=== PATIENT | male | born 1960 | race Caucasian/White ===

== ENCOUNTER 2016-04-27 08:26 | Emergency (ER) | payer BC ==
[2016-04-27 08:39] VITALS: BP 140/84
--- NOTE | 2016-04-27 09:17 | UC ---
General HPI - HPI Summary HPI Summary: The patient comes in today for: 1. Poor taste and coating on the tongue: Onset: Coating on the tongue noticed last night. Poor taste since yesterday. Palliative/provocative: Nothing makes the symptoms better or worse. Quality: No pain of the tongue. But, the tongue feels coated. Region: Tongue Severity: 0/10 Time: Constant. Associated symptoms: Nasal congestion: None. Rhinitis: None. Smell: "I smell pretty good." Cough: None. He went on the internet and thought he had thrush. Indigestion: He has had this for about 10 days when he started his Cipro and Flagy. He states that he has no radiation of the pain. Diaphoresis--none. He had nausea when he was on the medication. No vomiting. His risk factors include his age, DM, HTN, no previous heart disease. He has no radiation of the discomfort. He states that he has had a stress test about 5 years ago which was normal. And he states that he walks every day and states that he has no chest discomfort or indigestion. He states that in about 6 hours he is supposed to be getting on a plane to travel out of the area. He states that he agrees to an EKG while here at this time. * - History of Current Complaint Chief Complaint: UCGeneralIllness Stated Complaint: ORAL COMPLAINT Time Seen by Provider: 04/27/16 09:06 Hx Obtained From: Patient - Allergy/Home Medications Allergies/Adverse Reactions: Allergies Allergy/AdvReac Type Severity Reaction Status Date / Time Sulfa Drugs Allergy Intermediate Hives Verified 04/27/16 08:29 Home Medications: Home Medications Lisinopril TAB* [Prinivil TAB*] 10 mg PO DAILY 04/27/16 [History Confirmed 04/27] Misc Natural Products [Osteo Bi-Flex Joint Shiel] 1 tab PO DAILY 04/27/16 [ History Confirmed 04/27/16] PMH/Surg Hx/FS Hx/Imm Hx Previously Healthy: No - Irritable bowel. Endocrine History Of: Reports: Diabetes - rittype II, Dyslipidemia Denies: Thyroid Disease, Hyperthyroidism, Hypothyroidism Cardiovascular History Of: Reports: Hypertension - He states that he is on lisinopril. Denies: Cardiac Disorders, Pacemaker/ICD, Myocardial Infarction, Congestive Heart Failure, Atrial Fibrillation, Deep Vein Thrombosis, Bleeding Disorders Respiratory History Of: Denies: COPD, Asthma, Bronchitis, Pneumonia, Pulmonary Embolism GI/ History Of: Reports: Gastroesophageal Reflux Denies: Ulcer, Gastrointestinal Bleed, Gall Bladder Disease, Kidney Stones, Diverticulitis, Renal Disease, Urosepsis Neurological History Of: Denies: TIA, CVA, Dementia, Seizures, Migraine Psychological History Of: Denies: Anxiety, Depression, Bipolar Disorder, Schizophrenia, Post Traumatic Stress Disorder Cancer History Of: Denies: Lung Cancer, Colorectal Cancer, Breast Cancer, Prostate Cancer, Cervical Cancer Other History Of: Negative For: HIV, Hepatitis B, Hepatitis C, Anticoagulant Therapy - Surgical History Surgical History: Yes Surgery Procedure, Year, and Place: BILATERAL CARPAL TUNNEL SURGERY. R shoulder surgery - Family History Known Family History: Positive: Cardiac Disease, Hypertension - Social History Occupation: Unemployed Alcohol Use: Weekly Alcohol Amount: 1 glass wine Substance Use Type: None Smoking Status (MU): Former Smoker Type: Cigarettes Amount Used/How Often: quit 30 yo - Immunization History Most Recent Influenza Vaccination: 2016 Review of Systems Constitutional: Negative Skin: Negative Eyes: Negative ENT: Negative Respiratory: Negative Cardiovascular: Negative Gastrointestinal: Abdominal Pain - Indigestion which started when he started Rx for diverticulitis. Genitourinary: Negative All Other Systems Reviewed And Are Negative: Yes Physical Exam Triage Information Reviewed: Yes Appearance: Well-Appearing, No Pain Distress, Well-Nourished Vital Signs: Initial Vital Signs Temp 98.9 F 04/27/16 08:33 Pulse 93 04/27/16 08:33 Resp 16 04/27/16 08:33 BP 140/84 04/27/16 08:33 Pulse Ox 98 04/27/16 08:33 Vital Signs Reviewed: Yes Eyes: Positive: Conjunctiva Clear. Negative: Discharge ENT: Positive: Hearing grossly normal, Other: - He has no thrush, but has a white coated tongue.. Negative: Pharyngeal erythema, Nasal congestion, Nasal drainage, TM bulging, TM dull, TM red, Tonsillar swelling, Tonsillar exudate Dental: Negative: Gross Decay/Caries @, Dental Fracture @ Neck: Positive: Supple, Nontender, No Lymphadenopathy. Negative: Nuchal Rigidity Respiratory: Positive: Chest non-tender, No respiratory distress, No accessory muscle use. Negative: Crackles, Wheezing Cardiovascular: Positive: RRR, No Murmur Abdomen Description: Positive: Nontender, No Organomegaly. Negative: Distended , Guarding Musculoskeletal: Positive: Strength Intact, ROM Intact, No Edema Neurological: Positive: Alert, Muscle Tone Normal Psychological: Positive: Age Appropriate Behavior, Consolable Skin: Negative: rashes, breakdown Diagnostics - Laboratory Diagnostic Studies Completed/Ordered: EKG: Rate: 86. Rhythm: sinus. Ectopy: None. Acute changes: None. Course/Dx - Course Course Of Treatment: The geoffreyt was told that his "indigestion" could be a sign of a OR, and therefore my formal recommendation is for him to go to the ER for evaluation. He declined and just wanted an EKG here today. He was told that I did not see any signs of an OR, but my recommendation still was the same. He still wanted to not go to the ER for this. He declined a referral to ENT. - Differential Dx - Multi-Symptom Provider Diagnoses: Chest pain. White coated tongue. Anosmia. [place] Discharge - Discharge Plan Condition: Stable Disposition: AGAINST MEDICAL ADVICE Patient Education Materials: Indigestion (ED), Chest Pain (ED) Referrals: Daniel Osorio DO [Primary Care Provider] - As Soon As Possible (If you are not going to the ER, please reconsider if you get worse. Please see your primary care provider as soon as you can. )
== END 2016-04-27 10:13 | disposition left against medical advice (07) ==
LOC: UCCORT 08:26
DX: R43.9 Unspecified disturbances of smell and taste (principal); Z87.891 Personal history of nicotine dependence; I10 Essential (primary) hypertension; R07.9 Chest pain, unspecified; K14.3 Hypertrophy of tongue papillae; R43.0 Anosmia; Z53.21 Procedure and treatment not carried out due to patient leaving prior to being seen by health care provider
CPT/HCPCS: 93005; 99211; G0463